=== PATIENT | male | born 1985 | race Caucasian/White ===

== ENCOUNTER 2024-09-20 06:48 | Emergency (ER) | payer MEDICAID, SELFPAY ==
[2024-09-20 06:55] VITALS: BP 173/72; PULSE 77; RESP 22; TEMP 36.4; O2SAT 99
--- NOTE | 2024-09-20 07:07 | XR_ITS ---
Examination: Lumbar spine 3 views Technique one AP lateral coned lateral lower lumbar spine 3 views Exam date and time: September 20, 2024 0745 hrs. Indications: Lifting injury to lower back 2 days ago, back pain. Findings: Satisfactory alignment lumbar vertebral bodies Mild disc narrowing L4-L5, L5-S1 No lumbar fracture No spondylolisthesis Impression: Early degenerative disc disease L4-L5, L5-S1
--- NOTE | 2024-09-20 07:09 | PD.EDBACK ---
ED Back Injury Pain RME/HPI General Chief Complaint: Back Pain/Injury Stated Complaint: BACK PAIN Time Seen by Provider: 09/20/24 06:56 Source: patient Arrival date/time: 09/20/24 06:48 This is a 38-year-old male who presents to the emergency department with complaints of lumbar back pain for approximately 2 days. He does report that approximate 3 days ago he lifted a heavy barbecue grill and he felt a pinch. However this morning he woke up with severe right lower pain radiating to his hip down to his right leg. Reports history of lumbar back pain in the past states this is similar episode. Patient denies any other associated symptoms or aggravating factors. No modifying factors, no radiation, no migration. Denies Dysuria, hematuria no urinary symptoms, no saddle anesthesia no bowel bladder dysfunction Mode of arrival: ambulatory Related Data Previous Rx's ?Medication ?Instructions ?Recorded acetaminophen 325 mg tablet (Pain 650 mg (2 x 325 mg) PO TID #30 tabs 02/15/24 Relief (acetaminophen)) bacitracin 500 unit/gram topical 1 applic topical BID 5 days #30 02/15/24 ointment grams hydrocodone 5 mg-acetaminophen 325 1 tab PO BID PRN pain #6 tabs 02/15/24 mg tablet ibuprofen 600 mg tablet 600 mg PO Q8H PRN pain #30 tabs 02/15/24 cyclobenzaprine 5 mg tablet 5 mg PO TID PRN muscle spasm #14 09/20/24 tabs gabapentin 300 mg capsule 300 mg PO Q8H #30 caps 09/20/24 ibuprofen 800 mg tablet (IBU) 800 mg PO Q8H #20 tabs 09/20/24 lidocaine 5 % topical patch 1 patch topical QDAY #30 ea 09/20/24 prednisone 50 mg tablet 50 mg PO QDAY 5 days #5 tabs 09/20/24 Allergies Allergy/AdvReac Type Severity Reaction Status Date / Time NKA* Allergy Uncoded 09/20/24 06:52 Review of Systems Review of Systems Systems Reviewed: All systems reviewed, normal except as documented Narrative Review of Systems: Gen: No fever, no chills, no weight loss EYES: No discharge, no visual changes, no pain HEENT: No ear pain, no congestion, no sore throat PULM: No shortness of breath, no cough, no congestion CV: No chest pain, no dyspnea on exertion, no palpitations GI: No nausea, no vomiting, no diarrhea, no pain, no constipation : No frequency, no urgency,? no dysuria Musc/skel: No joint pain, ++back pain Skin: No rash? Neuro: No weakness, no headache ED Exam Narrative Physical exam: 38-year-old male appears to be in distress due to pain. General General appearance: Present alert and in distress Head Head exam: Present atraumatic Eye Eye exam: Present normal appearance, PERRL and EOMI ENT ENT exam: Present normal exam, normal oropharynx and mucous membranes moist Neck Neck exam: Present normal inspection, full ROM and trachea midline Chest Chest inspection: Present normal inspection and symmetric chest wall rise Respiratory Respiratory exam: Present normal lung sounds bilaterally Cardiovascular Cardiovascular exam: Present regular rate, normal rhythm and normal heart sounds Abdominal Exam Abdominal exam: Present soft and normal bowel sounds; Absent distention, tenderness or guarding Extremities Exam Extremities exam: Present full ROM Back Exam Back exam: Present full ROM, tenderness, muscle spasm, paraspinal tenderness and sciatic notch tenderness (R); Absent CVA tenderness (R) or CVA tenderness (L) Neurological Exam Neurological exam: Present alert, oriented X3 and CN II-XII intact Psychiatric Psychiatric exam: Present normal affect and normal mood Skin Skin exam: Present warm, dry, intact and normal color Course Quality Measures none Orders Category Date Time Status CT lumbar spine wo con Stat Exams 09/20/24 08:17 Completed XR hip RT w pelvis 2-3V Stat Exams 09/20/24 07:43 Completed XR lumbar spine 2-3V Stat Exams 09/20/24 07:07 Completed Urinalysis Stat Lab 09/20/24 07:48 Completed CYCLObenzaPRINE [Flexeril] Med 09/20/24 07:07 Discontinued 10 mg PO X1 ONE HYDROcodone*/APAP 5/325 [[place] 5/325] Med 09/20/24 07:07 Discontinued 1 tab PO X1 ONE Ketorolac Inj [Toradol Inj] Med 09/20/24 07:07 Discontinued 60 mg IM X1 ONE Lidocaine 5% Patch Med 09/20/24 08:20 Discontinued 1 patch TOP X1 ONE MethylPREDNISolone.* [SoluMEDROL Inj] Med 09/20/24 08:17 Discontinued 125 mg IM X1 ONE Vital Signs Vital signs: Vital Signs Temperature 97.5 F 09/20/24 06:55 Pulse Rate 77 09/20/24 06:55 Respiratory Rate 22 H 09/20/24 06:55 Blood Pressure 173/72 H 09/20/24 06:55 Pulse Oximetry (%) 99 09/20/24 06:55 Oxygen Delivery Method Room Air 09/20/24 06:55 Back Pain / Injury MDM Narrative MDM Narrative:: This patient presents with back pain most consistent with lumbar strain sp lifiting heavy object 3 days. Upon examination patient experiencing severe pain reports he felt his hip was dislocated prompting me to obtain imaging of lumbar spine. Differential diagnoses includes lumbago versus musculoskeletal spasm / strain versus sciatica. Presentation not consistent with malignancy (lack of history of malignancy, lack of B symptoms), fracture (no trauma, no bony tenderness to palpation), cauda equina (no bowel or urinary incontinence/retention, no saddle anesthesia, no distal weakness). Lumbar spine x-ray demonstrated degenerative disc disease, patient was given multiple medication however his pain was not improving. Went ahead and ordered a CT lumbar spine, in addition added UA which was negative for severe hematuria. he was also given lidocaine patch and steroids. Plan: pain control, supportive care, reassess Patient data External records reviewed:: [facility] previous records Clinical information provided by:: patient Social determinants that could affect healthcare access:: none Patient has the following chronic illnesses:: none How is presenting disease/condition affected by chronic disease/condition?: no chronic disease Evaluation data The following diagnostics were reviewed and interpreted by me:: radiology exam(s) Lab and/or radiology exams considered but not ordered:: yes Interpretation Summary: Examination:Right hip AP, lateral, AP pelvis 3 views Technique: Hip AP lateral, AP pelvis, 3 views Exam date and time:September 20, 2024 0745 hrs. Indications: Lifting injury to the lower back 3 days ago, lower back pain radiating to the right hip Findings: No right hip fracture or hip dislocation Left hip bones of the pelvis intact Impression: No acute hip or pelvic fracture Given the patient's presentation, consider MRI lumbar spine without contrast follow-up. Examination: Lumbar spine 3 views Technique one AP lateral coned lateral lower lumbar spine 3 views Exam date and time: September 20, 2024 0745 hrs. Indications: Lifting injury to lower back 2 days ago, back pain. Findings: Satisfactory alignment lumbar vertebral bodies Mild disc narrowing L4-L5, L5-S1 No lumbar fracture No spondylolisthesis Impression: Early degenerative disc disease L4-L5, L5-S1 Medications / Prescriptions Medications or Prescriptions considered but not ordered:: no Medication administrations:: Medication Administration History Discontinued Medications Hydrocodone Bitart/Acetaminophen (Hydrocodone/Apap 5/325 Tablet) 1 tab PO X1 ONE Stop: 09/20/24 07:08 Last Admin: 09/20/24 07:19 Dose: 1 tab Documented By: DO Cyclobenzaprine HCl (Cyclobenzaprine 5 Mg Tablet) 10 mg PO X1 ONE Stop: 09/20/24 07:08 Last Admin: 09/20/24 07:20 Dose: 10 mg Documented By: DO Ketorolac Tromethamine (Ketorolac Inj 60 Mg/2 Ml Vial) 60 mg IM X1 ONE Stop: 09/20/24 07:08 Last Admin: 09/20/24 07:21 Dose: 60 mg Documented By: DO Lidocaine (Lidocaine 5% 1 Patch) 1 patch TOP X1 ONE Stop: 09/20/24 08:21 Last Admin: 09/20/24 08:45 Dose: 1 patch Documented By: DO Methylprednisolone Sodium Succinate (Methylprednisolone Sod Succ 62.5 Mg/Ml 2ml Vial) 125 mg IM X1 ONE Stop: 09/20/24 08:18 Last Admin: 09/20/24 08:45 Dose: 125 mg Documented By: DO All medications administered and effective Consultations Consultation(s) initiated? (list below): No Diagnosis Differential diagnosis back pain/injury: lumbar radiculopathy, sciatica, strain of lumbar region and thoracic back pain Most likely diagnosis given after review of the tests above:: Lumbar radiculopathy Admission Indicated Admission indicated?: not indicated Admission Request Was there a request for admission?: No Disposition Plan Disposition Plan: Discharge Discharge Attestation Discharge Attestation: The patient and all family members were given an opportunity to ask questions and understood the discharge instructions. Discharge instructions specifically effects, indications for sooner follow up or return to the emergency department, and the expected course of current diagnosis. Patient condition: Stable Discharge Plan Plan Patient Disposition: HOME (Self Care) Patient condition on transfer: Stable Prescriptions/Referrals Prescriptions/Med Rec: New lidocaine 5 % adhesive patch,medicated 1 patch topical QDAY Qty: 30 0RF Rx Instructions: leave on most painful area for up to 12 hrs gabapentin 300 mg capsule 300 mg PO Q8H Qty: 30 0RF ibuprofen [IBU] 800 mg tablet 800 mg PO Q8H Qty: 20 0RF cyclobenzaprine 5 mg tablet 5 mg PO TID PRN (Reason: muscle spasm) Qty: 14 0RF prednisone 50 mg tablet 50 mg PO QDAY 5 Days Qty: 5 0RF No Action hydrocodone-acetaminophen 5-325 mg tablet 1 tab PO BID MDD 2 PRN (Reason: pain) Qty: 6 0RF bacitracin 500 unit/gram ointment 1 applic topical BID 5 Days Qty: 30 1RF ibuprofen 600 mg tablet 600 mg PO Q8H PRN (Reason: pain) Qty: 30 0RF acetaminophen [Pain Relief (acetaminophen)] 325 mg tablet 650 mg PO TID Qty: 30 0RF Referrals: Rolando Virk MD [Primary Care Provider] - In 1 week Problem List Clinical Impression: Bulging lumbar disc, Strain of lumbar region Patient/Caregiver Discharge Instructions Discharge Activity: activity as tolerated Education Materials: ED Back Sprain/Strain, ED Degenerative Disk Disease Additional Instructions: You were evaluated in the Emergency Department today for back pain. Your CT demonstrated bulging disc ? Move around as tolerated but avoiding heavy lifting. ?Bed rest? is not recommended nor is it the best treatment for low back pain. ? Medications will help control your discomfort: ? Ibuprofen (800 mg every 8 hours for pain). -Gabapentin as directed. -Lidocaine patches as directed Please follow up with your primary care physician as needed.?If you do not have a primary doctor, you can call your insurance company to find one. ?If you do not have insurance, you can go to the finance/registration department?for more assistance. Return to the ED immediately if you develop any of the following problems: ? Leaking urine or difficulty urinating; ? Inability to control your bowels; ? New numbness or weakness in your legs or numbness between your legs; ? Inability to walk ? Fever Print Language: Hebrew Stand Alone Forms: Lori Award Info., Work/School Release, Patient Portal Info Letter PA/ZBIGNIEW Supervising Physician PA/ZBIGNIEW Supervising Physician: Dr Mtz
[2024-09-20] MEDS: HYDROcodone/APAP 5/325 TABLET 1 TAB PO (07:19)
[2024-09-20] MEDS: CYCLObenzaPRINE 5 MG TABLET 10 MG PO (07:20)
[2024-09-20] MEDS: KETOROLAC INJ 60 MG/2 ML VIAL IM (07:21)
--- NOTE | 2024-09-20 07:43 | XR_ITS ---
Examination:Right hip AP, lateral, AP pelvis 3 views Technique: Hip AP lateral, AP pelvis, 3 views Exam date and time:September 20, 2024 0745 hrs. Indications: Lifting injury to the lower back 3 days ago, lower back pain radiating to the right hip Findings: No right hip fracture or hip dislocation Left hip bones of the pelvis intact Impression: No acute hip or pelvic fracture Given the patient's presentation, consider MRI lumbar spine without contrast follow-up.
[2024-09-20 08:08] LABS: Collection Type, Urine Clean Catch; Squamous Epithelial Cell,Urine 0 /hpf (0-5)
--- NOTE | 2024-09-20 08:17 | XR_ITS ---
Examination: CT lumbar spine, without contrast. 2-D sagittal reconstructions. 2-D coronal reconstructions. 3-D reconstructions. Date and time of exam:September 20, 2024 0855 hours INDICATIONS: Onset lower back pain today CTDI: vol (mGy):20.1 DLP: (mGycm):694 Technique: Multiple 1.25 mm axial sections of the lumbar spine without intravenous contrast have been obtained. 2-D sagittal and coronal reconstructions have been obtained. 3-D reconstructions have been obtained. Low dose protocols were performed. One or more of the following dose reduction techniques were used; automated exposure control, adjustment of the mA and/or KV according to patient size, use of iterative reconstruction technique. Findings: Adequate alignment lumbar vertebral bodies No lumbar fracture No spondylolisthesis Minimal disc narrowing L4-L5 Lumbar pedicles laminated transverse and posterior spinous processes L5-S1 no disc protrusion L4-L5 6 mm central lumbar disc bulge contiguous with the right and left L5 nerve roots L3-L4 no disc protrusion L2-L3 no disc protrusion L1-L2 no disc protrusion Incidental note 2 mm left renal calculus IMPRESSION: No lumbar fracture L4-L5 6 mm central lumbar disc bulge contiguous with the right and left L5 nerve roots 2 mm nonobstructing left renal calculus
[2024-09-20] MEDS: MethylPREDNISolone SOD SUCC 62.5 MG/ML 2ML VIAL 125 MG IM (08:45)
[2024-09-20] MEDS: LIDOCAINE 5% 1 PATCH TOP (08:45)
[2024-09-20 09:19] LABS: Bilirubin,Urine Negative (Negative); Blood,Urine Negative (Negative); Clarity,Urine Clear (Clear/Hazy); Color,Urine Lt-Yellow (Lt Yel-Yel); Glucose, Urine Negative (Negative); Ketones,Urine Negative (Negative); Leukocyte Esterase,Urine Negative (Negative); Nitrite,Urine Negative (Negative); PH,Urine 6.5 (5.0-7.0); Protein,Urine Negative (Neg - Trace); RBC,Urine 3 /hpf (0-3); Specific Gravity,Urine 1.024 (1.001-1.035); Urobilinogen,Urine Negative mg/dL (0.0-1.0); WBC,Urine 1 /hpf (0-5)
== END 2024-09-20 11:46 | disposition home or self-care (01) ==
PROVIDERS: Nurse Practitioner Primary Care; Emergency Provider Emergency Medicine; PCP Family Medicine
DX: S39.012A Strain of muscle, fascia and tendon of lower back, initial encounter (principal); M51.360 Other intervertebral disc degeneration, lumbar region with discogenic back pain only; M51.379 Other intervertebral disc degeneration, lumbosacral region without mention of lumbar back pain or lower extremity pain
CPT/HCPCS: 72100; 72131; 73502; 81001; 96372; 99284; J1885; J2919; Z7610; A9270

== ENCOUNTER 2025-01-26 15:52 | Emergency (ER) | payer MEDICAID, SELFPAY ==
[2025-01-26 16:40] VITALS: BP 130/88; PULSE 102; RESP 16; TEMP 36.8; O2SAT 96; BMI 28.0
--- NOTE | 2025-01-26 16:44 | PD.EDRME ---
Rapid Medical Screening Exam E Arrival date/time: 01/26/25 15:52 this is a 39-year-old male that comes into the emergency room with complaints of right shoulder injury. Patient states he dislocated his shoulder or thinks he dislocated his shoulder yesterday and his friend try to put it back in place and was not successful with this. I have greeted and performed a focused initial assessment of this patient. Initial appropriate labs ordered at this time. A comprehensive ED assessment and evaluation of the patient and analysis of all test and completion of medical decision making process will be conducted by additional ED provider. Chief Complaint: Extremity Injury, Upper Time Seen by Provider: 01/26/25 16:06 Vital signs: Vital Signs Temperature 98.3 F 01/26/25 16:40 Pulse Rate 102 H 01/26/25 16:40 Respiratory Rate 16 01/26/25 16:40 Blood Pressure 130/88 H 01/26/25 16:40 Pulse Oximetry (%) 96 01/26/25 16:40 Oxygen Delivery Method Room Air 01/26/25 16:40
--- NOTE | 2025-01-26 16:46 | XR_ITS ---
Examination: Shoulder,right, 3 views Technique: Shoulder AP internal rotation, AP external rotation, Y view shoulder, 3 views Exam date and time :January 27, 2024 1650 hours INDICATIONS: Injury of the shoulder to the cervical, shoulder pain FINDINGS: No shoulder fracture or dislocation Moderate narrowing glenohumeral joint IMPRESSION: No shoulder fracture or dislocation
--- NOTE | 2025-01-26 17:47 | PD.EDUPEX ---
Upper Extremity Injury RME/HPI General Chief Complaint: Extremity Injury, Upper Stated Complaint: RIGHT SHOULDER PAIN Time Seen by Provider: 01/26/25 16:06 Arrival date/time: 01/26/25 15:52 this is a 39-year-old male that comes into the emergency room with complaints of right shoulder injury. Patient states he dislocated his shoulder or thinks he dislocated his shoulder yesterday and his friend try to put it back in place and was not successful with this. RME / HPI RME / HPI narrative: 01/26/25 15:52 this is a 39-year-old male that comes into the emergency room with complaints of right shoulder injury. Patient states he dislocated his shoulder or thinks he dislocated his shoulder yesterday and his friend try to put it back in place and was not successful with this. I have greeted and performed a focused initial assessment of this patient. Initial appropriate labs ordered at this time. A comprehensive ED assessment and evaluation of the patient and analysis of all test and completion of medical decision making process will be conducted by additional ED provider. Related Data Previous Rx's ?Medication ?Instructions ?Recorded acetaminophen 325 mg tablet (Pain 650 mg (2 x 325 mg) PO TID #30 tabs 02/15/24 Relief (acetaminophen)) bacitracin 500 unit/gram topical 1 applic topical BID 5 days #30 02/15/24 ointment grams hydrocodone 5 mg-acetaminophen 325 1 tab PO BID PRN pain #6 tabs 02/15/24 mg tablet ibuprofen 600 mg tablet 600 mg PO Q8H PRN pain #30 tabs 02/15/24 cyclobenzaprine 5 mg tablet 5 mg PO TID PRN muscle spasm #14 09/20/24 tabs gabapentin 300 mg capsule 300 mg PO Q8H #30 caps 09/20/24 ibuprofen 800 mg tablet (IBU) 800 mg PO Q8H #20 tabs 09/20/24 lidocaine 5 % topical patch 1 patch topical QDAY #30 ea 09/20/24 cyclobenzaprine 10 mg tablet 10 mg PO HS PRN muscle spasm #14 01/26/25 tabs hydrocodone 5 mg-acetaminophen 325 1 tab PO Q6H PRN pain #10 tabs 01/26/25 mg tablet ibuprofen 800 mg tablet 800 mg PO Q6H PRN pain #14 tabs 01/26/25 Allergies Allergy/AdvReac Type Severity Reaction Status Date / Time No Known Allergies Allergy Unverified 01/26/25 18:00 Course Orders Category Date Time Status XR shoulder RT min 2V Stat Exams 01/26/25 16:46 Completed Vital Signs Vital signs: Vital Signs Temperature 98.3 F 01/26/25 16:40 Pulse Rate 102 H 01/26/25 16:40 Respiratory Rate 16 01/26/25 16:40 Blood Pressure 130/88 H 01/26/25 16:40 Pulse Oximetry (%) 96 01/26/25 16:40 Oxygen Delivery Method Room Air 01/26/25 16:40 Extremity Injury MDM Narrative MDM Narrative:: shoulder x ray: INDICATIONS: Injury of the shoulder to the cervical, shoulder pain FINDINGS: No shoulder fracture or dislocation Moderate narrowing glenohumeral joint IMPRESSION: No shoulder fracture or dislocation I spoke to patient at length. There is no acute fracture seen. Today patient had] xray of the shoulder. There was no acute fracture seen. Exam appeared unremarkable. I explained to patient at length that if there was continued pain to this area or worsened to come back to ED or see primary provider for more xrays or further testing such as CT scan or MRI. X rays are not perfect and sometimes serial films needed. Patient verbalized understanding. Patient states they will follow up with primary provider in 1-2 days or come back to ED if symptoms change or worsen. Explained to him that x-rays do not see ligament or rotator cuff injuries. Discharge Plan Plan Patient Disposition: HOME (Self Care) Patient condition on transfer: Stable Prescriptions/Referrals Prescriptions/Med Rec: New hydrocodone-acetaminophen 5-325 mg tablet 1 tab PO Q6H MDD 4 PRN (Reason: pain) Qty: 10 0RF ibuprofen 800 mg tablet 800 mg PO Q6H PRN (Reason: pain) Qty: 14 0RF cyclobenzaprine 10 mg tablet 10 mg PO HS PRN (Reason: muscle spasm) Qty: 14 0RF No Action hydrocodone-acetaminophen 5-325 mg tablet 1 tab PO BID MDD 2 PRN (Reason: pain) Qty: 6 0RF bacitracin 500 unit/gram ointment 1 applic topical BID 5 Days Qty: 30 1RF ibuprofen 600 mg tablet 600 mg PO Q8H PRN (Reason: pain) Qty: 30 0RF acetaminophen [Pain Relief (acetaminophen)] 325 mg tablet 650 mg PO TID Qty: 30 0RF lidocaine 5 % adhesive patch,medicated 1 patch topical QDAY Qty: 30 0RF Rx Instructions: leave on most painful area for up to 12 hrs gabapentin 300 mg capsule 300 mg PO Q8H Qty: 30 0RF ibuprofen [IBU] 800 mg tablet 800 mg PO Q8H Qty: 20 0RF cyclobenzaprine 5 mg tablet 5 mg PO TID PRN (Reason: muscle spasm) Qty: 14 0RF Referrals: No Primary/Family,Physician [Primary Care Provider] - In 1 week Problem List Clinical Impression: Injury of right shoulder Patient/Caregiver Discharge Instructions Discharge Activity: activity as tolerated Education Materials: ED Fracture, Upper Extremity Additional Instructions: INDICATIONS: Injury of the shoulder to the cervical, shoulder pain FINDINGS: No shoulder fracture or dislocation Moderate narrowing glenohumeral joint IMPRESSION: No shoulder fracture or dislocation Follow up with primary provider in 1-2 days. Come back to ED if symptoms change or worsen Print Language: Setswana Stand Alone Forms: Lori Award Info., Patient Portal Info Letter PA/BUTTON RIVETER Supervising Physician ALICIA/BUTTON RIVETER Supervising Physician: shirley
[2025-01-26] MEDS: HYDROcodone/APAP 5/325 TABLET 1 TAB PO (18:11)
[2025-01-26] MEDS: CYCLObenzaPRINE 5 MG TABLET PO (18:11)
[2025-01-26] MEDS: IBUPROFEN TAB 400 MG TABLET 800 MG PO (18:11)
== END 2025-01-26 18:23 | disposition home or self-care (01) ==
PROVIDERS: Emergency Provider Emergency Medicine
DX: S49.91XA Unspecified injury of right shoulder and upper arm, initial encounter (principal); X58.XXXA Exposure to other specified factors, initial encounter
CPT/HCPCS: 73030; 99283; A9270